=== PATIENT | male | born 2000 | race African-American/Black ===

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

== ENCOUNTER 2021-02-03 19:53 | Emergency (ER) | payer MEDICAID ==
[~2021-02-03] VITALS: Ht 175.3 cm; Wt 102.0 kg
[2021-02-03] MEDS ORDERED: IBUPROFEN 400MG TABLET PO ONE (21:00)
[2021-02-03] MEDS ORDERED: ACETAMINOPHEN 325MG TABLET PO ONE (21:00)
[2021-02-04 00:10] VITALS: BP 141/84
== END 2021-02-04 00:11 | disposition home or self-care (01) ==
LOC: ER 19:53
DX: S92.352A Displaced fracture of fifth metatarsal bone, left foot, initial encounter for closed fracture (principal); W10.9XXA Fall (on) (from) unspecified stairs and steps, initial encounter; Y93.89 Activity, other specified; Y92.89 Other specified places as the place of occurrence of the external cause
CPT/HCPCS: 29515; 73610; 73630; 99284

== ENCOUNTER 2024-03-24 15:30 | Emergency (ER) | payer SELFPAY ==
[~2024-03-24] VITALS: Ht 175.3 cm; Wt 97.5 kg
[2024-03-24 15:56] VITALS: O2SAT 99
[2024-03-24] MEDS ORDERED: IBUP-2029 MT (16:14)
[2024-03-24 16:30] VITALS: BP 119/85; PULSE 74; RESP 16; TEMP 98.1
[2024-03-24] MEDS: IBUPROFEN 600MG TABLET PO ONE (17:10)
== END 2024-03-24 18:05 | disposition home or self-care (01) ==
LOC: ER 15:30
DX: S92.351A Displaced fracture of fifth metatarsal bone, right foot, initial encounter for closed fracture (principal); X58.XXXA Exposure to other specified factors, initial encounter; Y93.89 Activity, other specified; Y92.89 Other specified places as the place of occurrence of the external cause; Y99.8 Other external cause status
CPT/HCPCS: 73630; 29515; 99283; Z7610